=== PATIENT | female | born 1950 | race Hispanic/Latino ===

== ENCOUNTER 2020-07-15 01:09 | Emergency (ER) | payer SELFPAY | END 2020-07-15 01:50 | disposition short-term general hospital (02) | LOC: ER 01:49 | DX: R50.9 Fever, unspecified (principal) ==

== ENCOUNTER → 2020-07-18 | Day surgery (SDC) | payer OTHER ==
[~2020-07-18] VITALS: Ht 162.6 cm; Wt 55.3 kg
[~2020-07-18] MED LIST: DEXAMETHASONE SOD PHOS INJ 4 MG/ML VIAL ONE; FENTANYL CITRATE/PF 100MCG/2 ML INJ ONE; GLYCOPYRROLATE INJ 0.2 MG/ML VIAL ONE; IOPAMIDOL 300MG/ML 50ML INFUS..BTL IV ONE; LIDOCAINE HCL 2% LOCAL INJ 5 ML SDV VIAL INJ ONE; MIDAZOLAM HCL 2 MG/2 ML VIAL ONE; MORPHINE SULFATE 2 MG/ML SYR 1ML IV STA; NEOSTIGMINE 1 MG/ML 10ML VIAL ONE; ONDANSETRON HCL INJ 2MG/ML 2ML 2 MG/ML VIAL IV STA; ONDANSETRON HCL INJ 2MG/ML 2ML 2 MG/ML VIAL ONE; PIPER-TAZ 3.375 GM 50 ML IV ONE; PROPOFOL IV EMULSION 10 MG/ML 20 ML VIAL ONE; ROCURONIUM BROMIDE 10 MG/ML 5ML VIAL IV ONE; SEVOFLURANE INHAL SOLN 250 ML PEN BTL ONE; SODIUM CHLORIDE 0.9% 1000ML 1,000 ML IV STA
[2020-07-18 11:22] LABS: BASOPHILS # (AUTO) 0.1 (0.0-0.1); BASOPHILS % 0.5 % (0.0-1.0); HEMATOCRIT 42.8 % (34.2-44.1); LYMPHOCYTES # (AUTO) 1.1 (1.0-3.2); LYMPHOCYTES % 5.1 % (18.0-39.1); MEAN CORPUSCULAR HEMOGLOBIN 32.8 pg (28-32); MEAN CORPUSCULAR VOLUME 93.4 fL (81-99); MONOCYTES # (AUTO) 0.8 (0.2-0.8); MONOCYTES % 3.8 % (4.4-11.3); NEUTROPHILS # (AUTO) 18.1 (2.1-6.9); PLATELET COUNT 78 x10e3/uL (140-360); RED BLOOD COUNT 4.58 x10e6/uL (3.6-5.1); RED CELL DISTRIBUTION WIDTH 13.2 % (11.7-14.4)
--- NOTE | 2020-07-18 11:28 | Diagnostic Imaging Report ---
EXAMINATION: CHEST SINGLE (PORTABLE) INDICATION: Flank pain COMPARISON: None FINDINGS: LINES/TUBES:None LUNGS:The lungs are well-inflated. No focal consolidation or pulmonary edema. Multiple punctate densities overlying the bilateral upper chest are likely external to the patient. PLEURA:No pleural effusion or pneumothorax. MEDIASTINUM:The cardiomediastinal silhouette appears normal in size and shape. Atherosclerotic calcifications of the thoracic aorta. BONES/SOFT TISSUES:No acute osseous injury. ABDOMEN:No free air under the diaphragm. IMPRESSION: No focal pneumonia or pulmonary edema. Signed by: Parish Espinoza MD on 07/18/2020 11:25 AM
[2020-07-18 11:31] LABS: BILIRUBIN,URINE 1+ (NEGATIVE); CLARITY,URINE CLOUDY (CLEAR); COLOR,URINE AMBER (YELLOW); KETONES,URINE TRACE (NEGATIVE); LEUKOCYTE ESTERASE ,URINE 1+ (NEGATIVE); NITRITE,URINE NEGATIVE (NEGATIVE); PROTEIN,URINE DIPSTICK 2+ (NEGATIVE); URINE UROBILINOGEN 0.2 mg/dL (0.2 - 1)
[2020-07-18 11:35] LABS: INR 0.99; PROTHROMBIN TIME 13.6 seconds (11.9-14.5)
[2020-07-18 11:36] LABS: PARTIAL THROMBOPLASTIN TIME 34.3 seconds (23.8-35.5)
[2020-07-18 11:37] LABS: AMORPHOUS SEDIMENT,URINE MANY (FEW); BACTERIA,URINE MODERATE /HPF; EPITHELIAL CELLS,URINE FEW /LPF; RBC,URINE >50 /HPF (0-5)
[2020-07-18 11:47] LABS: ALANINE AMINOTRANSFERASE 21 IU/L (0-55); ALBUMIN 3.3 g/dL (3.5-5.0); ALBUMIN/GLOBULIN RATIO 0.8 (0.8-2.0); ALKALINE PHOSPHATASE 123 IU/L (40-150); ANION GAP 18.7 mmol/L (8-16); BLOOD UREA NITROGEN 28 mg/dL (7-26); BUN/CREATININE RATIO 24 (6-25); CALCIUM 9.8 mg/dL (8.4-10.2); CARBON DIOXIDE 22 mmol/L (22-29); CHLORIDE 88 mmol/L (98-107); CREATININE, SERUM 1.16 mg/dL (0.57-1.11); EST GLOMERULAR FILTRATION RATE 46 ML/MIN (60-); GLUCOSE 115 mg/dL (74-118); POTASSIUM 3.7 mmol/L (3.5-5.1); SODIUM 125 mmol/L (136-145)
[2020-07-18 11:48] LABS: BAND NEUTROPHILS % (MANUAL) 3 %; LYMPHOCYTES % (MANUAL) 7 % (19-48); METAMYELOCYTES % (MANUAL) 1 % (0-0); MONOCYTES % (MANUAL) 3 % (3.4-9.0); NEUTROPHILS % (MANUAL) 86 % (40-74); PLATELET ESTIMATE ADEQUATE; PLATELET MORPHOLOGY COMMENT NORMAL; RBC MORPHOLOGY COMMENT NORMAL; SMUDGE CELLS FEW
[2020-07-18 11:59] LABS: CREATINE KINASE 16 IU/L (29-168)
--- NOTE | 2020-07-18 12:48 | Emergency Department Note ---
History of Present Illnes History of Present Illness Chief Complaint: Flank Pain History of Present Illness This is a 70 year old female PATIENT IN FROM HOME WITH COMPLAINTS OF LEFT FLANK PAIN X 5 DAYS; STATES SHE WAS SENT BY DR THOMAS FOR ADMISSION AND SURGERY FOR AN 8 MM KIDNEY STONE. PATIENT RATES PAIN 10, APPEARS IN NO DISTRESS, RESP EVEN AND NONLABORED, AMBULATORY WITHOUT ASSISTANCE. Historian: Patient Arrival Mode: Car Learning Coordinator Required: No Onset (how long ago): day(s) (5) Location: left flank Quality: pain Radiation: Reports abdomen Severity: severe Onset quality: sudden Timing of current episode: intermittent Progression: waxing and waning Chronicity: recurrent Context: Denies recent illness Relieving factors: none Exacerbating factors: none Associated symptoms: Reports denies other symptoms Treatments prior to arrival: none Past Medical/Family History Physician Review I have reviewed the patient's past medical and family history. Any updates have been documented here. Past Medical History Recent Fever: No Clinical Suspicion of Infectio: No New/Unexplained Change in Ment: No Past Medical History: Diabetes, Asthma, Hypothyroidism, Kidney Stones Other Surgery: THYROIDECTOMY Social History Smoking Cessation: Never Smoker Counseling Performed: No Alcohol Use: None Any Illegal Drug Use: No TB Exposure/Symptoms: No Physically hurt or threatened: No Family History Family history of heart diseas: No Other Any Pre-Existing Lines (PICC,: No Review of Systems Review of Systems Constitutional: Reports no symptoms EENTM: Reports no symptoms Cardiovascular: Reports no symptoms Respiratory: Reports no symptoms Gastrointestinal: Reports as per HPI Genitourinary: Reports no symptoms Musculoskeletal: Reports no symptoms Integumentary: Reports no symptoms Neurological: Reports no symptoms Psychological: Reports no symptoms Endocrine: Reports no symptoms Hematological/Lymphatic: Reports no symptoms Physical Exam Related Data Allergies: Coded Allergies: meperidine (Verified Allergy, Severe, HYPOTENSION, 07/18/20) Iodinated Contrast Media (Verified Allergy, Mild, RASH, 07/18/20) cephalexin (Verified Allergy, Mild, HIVES, 07/18/20) Triage Vital Signs Vital Signs Date Time Temp Pulse Resp B/P (MAP) Pulse Ox O2 Delivery O2 Flow Rate FiO2 07/18/20 10:46 98.0 105 18 117/77 99 Room Air Vital signs reviewed: Yes Physical Exam CONSTITUTIONAL Constitutional: Present well-developed, Present well-nourished HENT HENT: Present normocephalic, Present atraumatic, Present oropharynx clear/moist, Present nose normal HENT L/R: Present left ext ear normal, Present right ext ear normal EYES Eyes: Reports PERRL, Reports conjunctivae normal NECK Neck: Present ROM normal PULMONARY Pulmonary: Present effort normal, Present breath sounds normal CARDIOVASCULAR Cardiovascular: Present regular rhythm, Present heart sounds normal, Present capillary refill normal, Present normal rate GASTROINTESTINAL Abdominal: Present soft, Present nontender, Present bowel sounds normal, Present left CVA tenderness GENITOURINARY Genitourinary: Present exam deferred SKIN Skin: Present warm, Present dry MUSCULOSKELETAL Musculoskeletal: Present ROM normal NEUROLOGICAL Neurological: Present alert, Present oriented x 3, Present no gross motor or sensory deficits PSYCHOLOGICAL Psychological: Present mood/affect normal, Present judgement normal Results Laboratory Result Diagram: 07/18/20 1050 07/18/20 1050 Laboratory Laboratory Tests Test 07/18/20 11:54 07/18/20 10:50 White Blood Count 20.76 x10e3/uL (4.8-10.8) Red Blood Count 4.58 x10e6/uL (3.6-5.1) Hemoglobin 15.0 g/dL (12.0-16.0) Hematocrit 42.8 % (34.2-44.1) Mean Corpuscular Volume 93.4 fL (81-99) Mean Corpuscular Hemoglobin 32.8 pg (28-32) Mean Corpuscular Hemoglobin Concent 35.0 g/dL (31-35) Red Cell Distribution Width 13.2 % (11.7-14.4) Platelet Count 78 x10e3/uL (140-360) Neutrophils (%) (Auto) 87.0 % (38.7-80.0) Lymphocytes (%) (Auto) 5.1 % (18.0-39.1) Monocytes (%) (Auto) 3.8 % (4.4-11.3) Eosinophils (%) (Auto) 0.0 % (0.0-6.0) Basophils (%) (Auto) 0.5 % (0.0-1.0) Neutrophils # (Auto) 18.1 (2.1-6.9) Lymphocytes # (Auto) 1.1 (1.0-3.2) Monocytes # (Auto) 0.8 (0.2-0.8) Eosinophils # (Auto) 0.0 (0.0-0.4) Basophils # (Auto) 0.1 (0.0-0.1) Absolute Immature Granulocyte (auto 0.75 x10e3/uL (0-0.1) Differential Total Cells Counted 100 Neutrophils % (Manual) 86 % (40-74) Band Neutrophils % 3 % Lymphocytes % (Manual) 7 % (19-48) Monocytes % (Manual) 3 % (3.4-9.0) Metamyelocytes % 1 % (0-0) Smudge Cells Few Platelet Estimate Adequate Platelet Morphology Comment Normal Red Cell Morphology Comment Normal Prothrombin Time 13.6 seconds (11.9-14.5) Prothromb Time International Ratio 0.99 Activated Partial Thromboplast Time 34.3 seconds (23.8-35.5) Urine Color Anjali (YELLOW) Urine Clarity Cloudy (CLEAR) Urine pH 5.5 (5 - 7) Urine Specific [place] 1.010 (1.010-1.025) Urine Protein 2+ (NEGATIVE) Urine Glucose (UA) Negative (NEGATIVE) Urine Ketones Trace (NEGATIVE) Urine Blood 4+ (NEGATIVE) Urine Nitrite Negative (NEGATIVE) Urine Bilirubin 1+ (NEGATIVE) Urine Urobilinogen 0.2 mg/dL (0.2 - 1) Urine Leukocyte Esterase 1+ (NEGATIVE) Urine RBC >50 /HPF (0-5) Urine WBC 6-10 /HPF (0-5) Urine Epithelial Cells Few /LPF (NONE) Urine Amorphous Sediment Many (FEW) Urine Bacteria Moderate /HPF (NONE) Sodium Level 125 mmol/L (136-145) Potassium Level 3.7 mmol/L (3.5-5.1) Chloride Level 88 mmol/L (98-107) Carbon Dioxide Level 22 mmol/L (22-29) Anion Gap 18.7 mmol/L (8-16) Blood Urea Nitrogen 28 mg/dL (7-26) Creatinine 1.16 mg/dL (0.57-1.11) Estimat Glomerular Filtration Rate 46 ML/MIN (60-) BUN/Creatinine Ratio 24 (6-25) Glucose Level 115 mg/dL (74-118) Calcium Level 9.8 mg/dL (8.4-10.2) Total Bilirubin 0.8 mg/dL (0.2-1.2) Aspartate Amino Transf (AST/SGOT) 18 IU/L (5-34) Alanine Aminotransferase (ALT/SGPT) 21 IU/L (0-55) Alkaline Phosphatase 123 IU/L (40-150) Creatine Kinase 16 IU/L (29-168) Creatine Kinase MB 0.50 ng/mL (0-5.0) Troponin I < 0.001 ng/mL (0-0.300) Total Protein 7.3 g/dL (6.5-8.1) Albumin 3.3 g/dL (3.5-5.0) Globulin 4.0 g/dL (2.3-3.5) Albumin/Globulin Ratio 0.8 (0.8-2.0) Lab results reviewed: Yes Assessment & Plan Medical Decision Making MDM CBC, CHEM, UA/CX - R/O UTI/PYELO, FROM OUTSIDE CT PT NEEDS STENT FOR OBSTRUCTING STONE Reassessment Reassessment DR THOMAS BROUGHT PT TO OR FOR STENT, DISPO PER DR THOMAS Assessment & Plan Final Impression: (1) Ureterolithiasis (2) Leukocytosis (3) Hyponatremia Depart Disposition: ADMITTED (FROM ER TO OR PER DR THOMAS) Last Vital Signs Date Time Temp Pulse Resp B/P (MAP) Pulse Ox O2 Delivery O2 Flow Rate FiO2 07/18/20 10:46 98.0 105 18 117/77 99 Room Air Medications in the ED Morphine Sulfate 2 mg ONCE STAT IV Last administered on 07/18/20at 11:40; Admin Dose 2 MG; Start 07/18/20 at 10:55; Stop 07/18/20 at 10:56 Ondansetron HCl 4 mg ONCE STAT IV Last administered on 07/18/20at 11:41; Admin Dose 4 MG; Start 07/18/20 at 10:55; Stop 07/18/20 at 10:56 Sodium Chloride 1,000 ml @ 0 mls/hr Q0M STAT IV Last administered on 07/18/20at 11:42; Admin Dose 999 MLS/HR; Start 07/18/20 at 10:55; Stop 07/18/20 at 10:56 JAIME HO MD Jul 18, 2020 12:48
[2020-07-18 14:44] VITALS: BP 125/76
--- NOTE | 2020-07-19 16:01 | Diagnostic Imaging Report ---
Fluoroscopic guidance for retrograde pyelogram Fluoroscopy time: 18 seconds Total dose: 1.9mGy Fluoroscopic guidance was provided intraprocedurally for retrograde pyelogram. Multiple images were obtained. The radiologist was not present for this exam. Images demonstrate cannulation and retrograde contrast injection via both ureters with subsequent placement of a left internal nephroureteral stent. For further details please refer to the dedicated operative report. Signed by: Parish Espinoza MD on 07/19/2020 3:58 PM
--- NOTE | 2020-07-20 13:00 | Operative Report ---
DATE OF PROCEDURE: 07/18/2020 SURGEON: Kenan Larkin MD PREOPERATIVE DIAGNOSIS: Left renal calculi POSTOPERATIVE DIAGNOSES: Left proximal ureteral calculi, level of UPJ with narrowing of distal ureter. OPERATIONS PERFORMED: Cystoscopy, retrograde pyelogram, stone manipulation, and placement of left double-J. ANESTHESIOLOGIST: Staff. ANESTHESIA: General. FINDINGS: Normal urethra. Normal trigone. 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 Stone in the level of UPJ, 8 mm with narrowing of the ureter proximal to the stone. Placement of double-J. PROCEDURE IN DETAIL: With the patient under satisfactory general anesthesia, the patient was placed in the supine position on the operating table. Legs were placed on stirrups. Genitalia was then prepped with pHisoHex solution and draped in the usual manner. A #22-[place] cystourethroscope was passed per urethra into the bladder with a 12-degree angle lens. Findings are dictated above. Open-ended catheter was used to obtain retrograde out of the right side, which was normal and then the left side, which showed about 1.5 cm to 2 cm of narrowing of the ureter in front of the stone. At that point, an extra stiff guidewire was introduced up to the stone. Manipulation was then done with the double-J and an open-ended catheter until the guidewire passed by the stone. It was believed that the stone may have been pushed up into the kidney, but because of contrast, could not visualize well where it went. At that point and over the guidewire, a 6-[place] Kwart and reversal double-J was introduced, coiled in the renal pelvis and then coiled in the bladder. The sleeve was used to disengage the pusher and leave the double-J in place. At this point, the patient was taken to the recovery room in satisfactory condition. DISCHARGE INSTRUCTIONS: She was given Macrobid as well as tramadol. Diet as tolerated. Continue all the other medicines. We will reschedule her in approximately 10 days to 2 weeks to come back to treat the stone accordingly. Kenan Larkin MD RRG/MODL /[id number]
== END | disposition home or self-care (01) ==
LOC: ER 10:49 → OR 14:01
PROVIDERS: ATTEND Urology
DX: N20.1 Calculus of ureter (principal); N13.5 Crossing vessel and stricture of ureter without hydronephrosis; N20.0 Calculus of kidney; D72.829 Elevated white blood cell count, unspecified; E87.1 Hypo-osmolality and hyponatremia; E03.9 Hypothyroidism, unspecified; J45.909 Unspecified asthma, uncomplicated; E78.5 Hyperlipidemia, unspecified; E11.9 Type 2 diabetes mellitus without complications; Z88.6 Allergy status to analgesic agent; Z88.1 Allergy status to other antibiotic agents; Z91.041 Radiographic dye allergy status; Z11.59 Encounter for screening for other viral diseases
CPT/HCPCS: 36415; 52330; 52332; 71045; 74420; 80053; 81001; 82550; 82553; 82948; 84484; 85025; 85610; 85730; 87086; 99284; C1758 ×2; C1769; C2625; J1100; J2001; J2250; J2270; J2405; J2704; J2710; J3010; J7030; Q9967; U0002

== ENCOUNTER → 2020-08-01 | Day surgery (SDC) | payer MEDICARE, OTHER ==
[2020-07-27 17:28] LABS: BASOPHILS # (AUTO) 0.1 (0.0-0.1); EOSINOPHILS # (AUTO) 0.1 (0.0-0.4); EOSINOPHILS % 1.8 % (0.0-6.0); HEMATOCRIT 42.1 % (34.2-44.1); LYMPHOCYTES # (AUTO) 1.7 (1.0-3.2); LYMPHOCYTES % 27.9 % (18.0-39.1); MEAN CORPUSCULAR HEMOGLOBIN 32.4 pg (28-32); MEAN CORPUSCULAR HGB CONC 33.3 g/dL (31-35); MEAN CORPUSCULAR VOLUME 97.5 fL (81-99); MONOCYTES # (AUTO) 0.4 (0.2-0.8); MONOCYTES % 6.4 % (4.4-11.3); NEUTROPHILS # (AUTO) 3.9 (2.1-6.9); NEUTROPHILS % 62.6 % (38.7-80.0); PLATELET COUNT 391 x10e3/uL (140-360); RED BLOOD COUNT 4.32 x10e6/uL (3.6-5.1); RED CELL DISTRIBUTION WIDTH 13.7 % (11.7-14.4)
[2020-07-27 17:52] LABS: ALANINE AMINOTRANSFERASE 12 IU/L (0-55); ALBUMIN 3.9 g/dL (3.5-5.0); ALBUMIN/GLOBULIN RATIO 1.1 (0.8-2.0); ALKALINE PHOSPHATASE 74 IU/L (40-150); ANION GAP 17.5 mmol/L (8-16); BLOOD UREA NITROGEN 12 mg/dL (7-26); BUN/CREATININE RATIO 14 (6-25); CALCIUM 9.4 mg/dL (8.4-10.2); CARBON DIOXIDE 25 mmol/L (22-29); CHLORIDE 102 mmol/L (98-107); CREATININE, SERUM 0.86 mg/dL (0.57-1.11); EST GLOMERULAR FILTRATION RATE > 60 ML/MIN (60-); GLUCOSE 133 mg/dL (74-118); POTASSIUM 4.5 mmol/L (3.5-5.1); SODIUM 140 mmol/L (136-145)
[~2020-08-01] MED LIST changes: +B&O 60MG R/S 60 MG SUPP PR ONE; +COQ-1030 MG PO; -DEXAMETHASONE SOD PHOS INJ 4 MG/ML VIAL ONE; +EPHEDRINE SULFATE INJ 50 MG/ML VIAL ONE; -GLYCOPYRROLATE INJ 0.2 MG/ML VIAL ONE; +KETOROLAC TROMETHAMINE 30 MG/ML VIAL ONE; +LEVOFLOXACIN 500MG/D5W 100ML 100 ML IV ONE; +LIPITOR20 MG PO; +MAGNESIUM OXID400 MG PO; +METFORMIN HCL500 M2 PO; -MORPHINE SULFATE 2 MG/ML SYR 1ML IV STA; -NEOSTIGMINE 1 MG/ML 10ML VIAL ONE; +OCUVITE LUTEIN1 EACH PO; -ONDANSETRON HCL INJ 2MG/ML 2ML 2 MG/ML VIAL IV STA; -PIPER-TAZ 3.375 GM 50 ML IV ONE; -PROPOFOL IV EMULSION 10 MG/ML 20 ML VIAL ONE; +PROPOFOL IV EMULSION 50 ML IV ONE; -ROCURONIUM BROMIDE 10 MG/ML 5ML VIAL IV ONE; -SODIUM CHLORIDE 0.9% 1000ML 1,000 ML IV STA; +SYNTHROID88 MCG PO; +TURMERIC538 MG PO; +VITAMIN C500 M2 PO; +VITAMIN D310 MC1 PO; +VITAMIN E400 UNI1 PO
--- NOTE | 2020-08-01 15:42 | Diagnostic Imaging Report ---
EXAM: RETROGRADE PYELOGRAM DATE: 08/01/2020 1:45 PM Fluoroscopy Time: 8 seconds. Reference Air Kerma (Ka, r): 0.79 mGy. FINDINGS/IMPRESSION: Fluoroscopic guidance was provided interprocedural he for retrograde pyelogram. Radiologist was not present for the examination. An interoperative report was not requested. Provided images demonstrate cannulation of the left indwelling left ureteral stent. Contrast injection noted within the left renal pelvis. For further details please refer to dedicated operative report. Signed by: Dr. Poli Ramirez MD on 08/01/2020 3:39 PM
[2020-08-01 16:20] VITALS: BP 124/79
--- NOTE | 2020-08-02 20:28 | Operative Report ---
DATE OF PROCEDURE: 08/01/2020 SURGEON: Kenan Larkin MD PREOPERATIVE DIAGNOSIS: Left renal calculi. POSTOPERATIVE DIAGNOSIS: Left renal calculi. OPERATIONS PERFORMED: Cystoscopy retrograde pyelogram, flexible ureteroscopy with renoscopy, laser lithotripsy with removal of renal calculi. ANESTHESIOLOGIST: Staff. ANESTHESIA: General. FINDINGS: The patient had an indwelling left double-J, stone had been manipulated from the proximal ureter back up into the kidney and previous double-J placement, that stone was located this time in the lower pole collecting system. Flexible cystoscopy was performed. The stone was placed and the stone was treated. The patient also had cystitis cystica without any evidence of cystocele or rectocele. PROCEDURE IN DETAIL: With the patient under satisfactory general anesthesia, the patient was placed in the supine position on the operating table. Legs were placed on stirrups. Genitalia was then prepped with Betadine soap and solution, and draped in usual manner. A #22-[place] cystourethroscope was passed per urethra into the bladder. The bladder was inspected and findings of cystitis cystica around the trigone and posterior wall of the bladder was found. Once that was done, then the double-J was grasped with the grasping forceps and brought out through the urethral meatus. At that point, I placed an extra stiff guidewire all the way up to the kidney. The double-J was then removed. The flexible ureteroscope was then introduced into the bladder and up the ureter, I worked all the way up to the kidney. I found the stone to be located in the lower pole calyx. Using a 1.1 [place] basket, I grabbed the stone and moved up to the upper pole. I exchanged the basket by a 200 micron laser fiber. I gave the stone multiple shocks and broken into three fragments; those fragments were removed one piece at the time with a flexible ureteroscope passing it up to the kidney twice. Since I did introduce a ureteral access sheath and the stone was treated in the upper pole collecting system causing minimal blood, my decision was not to leave the double-J. Retrograde pyelogram was done and it showed that the patient had some infundibulum by locally sealed back flow, which will eliminate some of the intrarenal pressure does causing less pain. Therefore, at that time, I removed all of the instruments and sent the patient to the recovery room in satisfactory condition. DISCHARGE INSTRUCTION: Continue all her other medications. She was given tramadol as well as Keflex. Regular diet. Activity as tolerated. I will follow her in my office within 2 weeks. MD JELANI Ruff/MODL /[id number]
== END | disposition home or self-care (01) ==
LOC: OR 10:14
PROVIDERS: ATTEND Urology
DX: N20.1 Calculus of ureter (principal); N20.0 Calculus of kidney; N30.80 Other cystitis without hematuria; Z46.6 Encounter for fitting and adjustment of urinary device; E78.5 Hyperlipidemia, unspecified; J45.909 Unspecified asthma, uncomplicated; K21.9 Gastro-esophageal reflux disease without esophagitis; K57.90 Diverticulosis of intestine, part unspecified, without perforation or abscess without bleeding; Z88.6 Allergy status to analgesic agent; Z88.1 Allergy status to other antibiotic agents; Z91.041 Radiographic dye allergy status; Z01.810 Encounter for preprocedural cardiovascular examination; Z01.812 Encounter for preprocedural laboratory examination; Z11.59 Encounter for screening for other viral diseases; Z79.84 Long term (current) use of oral hypoglycemic drugs
CPT/HCPCS: 36415 ×2; 52353; 74420; 80053; 82948; 85025; 87086; 87186; 88300; 93005; C1758; J1885; J1956; J2001; J2250; J2405; J2704; J3010; Q9967; U0002

== ENCOUNTER 2023-01-06 14:21 | Emergency (ER) | payer MEDICARE, OTHER ==
[~2023-01-06] VITALS: Ht 162.6 cm; Wt 55.3 kg
[~2023-01-06 14:21] MED LIST changes: -B&O 60MG R/S 60 MG SUPP PR ONE; -EPHEDRINE SULFATE INJ 50 MG/ML VIAL ONE; -FENTANYL CITRATE/PF 100MCG/2 ML INJ ONE; -IOPAMIDOL 300MG/ML 50ML INFUS..BTL IV ONE; -KETOROLAC TROMETHAMINE 30 MG/ML VIAL ONE; -LEVOFLOXACIN 500MG/D5W 100ML 100 ML IV ONE; -LIDOCAINE HCL 2% LOCAL INJ 5 ML SDV VIAL INJ ONE; -MIDAZOLAM HCL 2 MG/2 ML VIAL ONE; -ONDANSETRON HCL INJ 2MG/ML 2ML 2 MG/ML VIAL ONE; -PROPOFOL IV EMULSION 50 ML IV ONE; -SEVOFLURANE INHAL SOLN 250 ML PEN BTL ONE
[2023-01-06] MEDS ORDERED: ONDANSETRON HCL 4 MG ORAL DISINTEGRATING TAB PO ONE (15:00)
[2023-01-06] MEDS ORDERED: ACETAMINOPHEN 325 MG TAB PO ONE (15:00)
[2023-01-06] MEDS ORDERED: ONDANSETRON HCL 4 MG ORAL DISINTEGRATING TAB ONE (15:04)
[2023-01-06] MEDS ORDERED: ACETAMINOPHEN 325 MG TAB ONE (15:04)
[2023-01-06] MEDS ORDERED: METHOCARBAMOL500 MG PO (16:35)
[2023-01-06] MEDS ORDERED: ONDANSETRON ODT4 MG PO (16:35)
== END 2023-01-06 16:58 | disposition home or self-care (01) ==
LOC: ER 14:25
DX: S06.0X0A Concussion without loss of consciousness, initial encounter (principal); W20.8XXA Other cause of strike by thrown, projected or falling object, initial encounter; Y92.512 Supermarket, store or market as the place of occurrence of the external cause; E11.9 Type 2 diabetes mellitus without complications; E03.9 Hypothyroidism, unspecified; J45.909 Unspecified asthma, uncomplicated; Z87.442 Personal history of urinary calculi
CPT/HCPCS: 70450; 72110; 72125; 99283; Q0162